=== PATIENT | female | born 1980 | race American Indian/Alaskan Native ===

== ENCOUNTER 2018-06-16 16:20 | Emergency (ER) | payer OTHER ==
[2018-06-16] MEDS ORDERED: NACL 0.9% 1000 ML 1,000 ML IV ONE ×2 (16:43→18:39)
[2018-06-16 17:31] LABS: Hematocrit 29.7 % (30.3-42.9); Hemoglobin 8.9 gm/dl (10.1-14.3); Mean Corpuscular HGB Conc 30 % (30-34); Mean Corpuscular Hemoglobin 20 pg (28-32); Mean Corpuscular Volume 66 fl (79-97); Platelet Count 362 K/mm3 (140-440); Red Blood Count 4.48 M/mm3 (3.65-5.03); Red Cell Distribution Width 18.7 % (13.2-15.2)
[2018-06-16 17:50] LABS: Alanine Aminotransferase 19 units/L (7-56); Albumin 4.4 g/dL (3.9-5); BUN/Creatinine Ratio 16; Blood Urea Nitrogen 11 mg/dL (7-17); Hemolysis Index 0; Lipase 40 units/L (13-60)
--- NOTE | 2018-06-16 18:20 | Emergency Department Report ---
ED Abdominal Pain HPI - General Chief Complaint: Abdominal Pain Stated Complaint: N/V/D Time Seen by Provider: 06/16/18 18:30 Source: patient, family Mode of arrival: Wheelchair Limitations: No Limitations - History of Present Illness Initial Comments: This is a 38-year-old female presented to the hospital with nausea vomiting diarrhea with dizziness that started at 3:00 this morning. She is complaining of some abdominal cramping. Pain is 4 out of 10 and constant. She said it started approximately 2 hours after she ate [employer]. Denies any fever or chills. Denies any vaginal bleeding or discharge. Denies any urinary burning, frequency or urgency. Patient says she was treated at [facility] for urinary tract infection a few weeks ago. Her primary care doctors at [facility]. Pain is worse of vomiting and no alleviating factor. Denies any chest pain or shortness of breath. No medication taken before coming to the hospital MD Complaint: abdominal pain, other (nausea, vomiting and diarrhea) -: This evening Location: diffuse Radiation: none Migration to: no migration Severity: mild Severity scale (0 -10): 4 Quality: cramping Consistency: constant Improves With: nothing Worsens With: vomiting Context: other (unknown) Associated Symptoms: nausea, vomiting, diarrhea, other (dizziness). denies: fever, chills, constipation, dysuria, hematemesis, hematochezia, melena, hematuria, syncope Treatments Prior to Arrival: other (none) - Related Data Previous Rx's Medication Instructions Recorded Last Taken Type Dicyclomine [Bentyl] 40 mg PO Q8H 3 Days #9 tablet 06/16/18 Unknown Rx Famotidine [Pepcid] 20 mg PO BID 6 Days #12 tablet 06/16/18 Unknown Rx Promethazine [Phenergan TAB] 25 mg PO Q6HR PRN #16 tab 06/16/18 Unknown Rx cephALEXin [Keflex] 500 mg PO Q8HR 7 Days #21 cap 06/16/18 Unknown Rx Allergies Allergy/AdvReac Type Severity Reaction Status Date / Time egg Allergy Hives Verified 06/16/18 16:40 latex Allergy Hives Verified 06/16/18 16:40 seafood Allergy Hives Uncoded 06/16/18 16:40 ED Review of Systems ROS: Stated complaint: N/V/D Other details as noted in HPI Constitutional: denies: chills, fever ENT: denies: throat pain, congestion Respiratory: denies: cough, shortness of breath, SOB with exertion, SOB at rest , wheezing Cardiovascular: denies: chest pain, palpitations, dyspnea on exertion, edema, syncope Gastrointestinal: abdominal pain, nausea, vomiting, diarrhea. denies: constipation, hematemesis, melena, hematochezia Genitourinary: denies: urgency, dysuria, frequency, hematuria, discharge Musculoskeletal: denies: back pain, joint swelling, arthralgia Skin: denies: rash, lesions Neurological: denies: headache, weakness, paresthesias, abnormal gait, vertigo ED Past Medical Hx - Past Medical History Previous Medical History?: Yes Additional medical history: low iron - Surgical History Past Surgical History?: Yes Hx Cholecystectomy: Yes Additional Surgical History: C/S - Family History Family history: hypertension - Social History Smoking Status: Never Smoker Substance Use Type: Alcohol - Medications Home Medications: Home Medications Medication Instructions Recorded Confirmed Last Taken Type Dicyclomine [Bentyl] 40 mg PO Q8H 3 Days #9 tablet 06/16/18 Unknown Rx Famotidine [Pepcid] 20 mg PO BID 6 Days #12 tablet 06/16/18 Unknown Rx Promethazine [Phenergan TAB] 25 mg PO Q6HR PRN #16 tab 06/16/18 Unknown Rx cephALEXin [Keflex] 500 mg PO Q8HR 7 Days #21 cap 06/16/18 Unknown Rx ED Physical Exam - General Limitations: No Limitations General appearance: alert, in no apparent distress - Head Head exam: Present: atraumatic, normocephalic, normal inspection - Eye Eye exam: Present: normal appearance, PERRL, EOMI Pupils: Present: normal accommodation - ENT ENT exam: Present: normal exam, normal orophraynx, mucous membranes moist, TM's normal bilaterally, normal external ear exam - Neck Neck exam: Present: normal inspection, full ROM. Absent: tenderness, lymphadenopathy - Respiratory Respiratory exam: Present: normal lung sounds bilaterally. Absent: respiratory distress, chest wall tenderness - Cardiovascular Cardiovascular Exam: Present: regular rate, normal rhythm, normal heart sounds. Absent: systolic murmur, diastolic murmur - GI/Abdominal GI/Abdominal exam: Present: soft, tenderness (patient reports tenderness with palpation, generalized), guarding, normal bowel sounds. Absent: distended, rebound, rigid, organomegaly, mass, bruit, pulsatile mass - Extremities Exam Extremities exam: Present: normal inspection, full ROM, normal capillary refill , other (No cce. + 2 pulses in all extremities, no neurovascular compromise). Absent: tenderness, pedal edema, joint swelling, calf tenderness - Back Exam Back exam: Present: normal inspection, full ROM, other (embolus without any difficulties). Absent: CVA tenderness (R), CVA tenderness (L), vertebral tenderness, rash noted - Neurological Exam Neurological exam: Present: alert, oriented X3, normal gait - Psychiatric Psychiatric exam: Present: normal affect, normal mood - Skin Skin exam: Present: warm, dry, intact, normal color. Absent: rash ED Course Vital Signs 06/16/18 06/16/18 16:40 20:56 Temperature 98.2 F 98.5 F Pulse Rate 95 H 77 Respiratory 18 16 Rate Blood Pressure 104/59 Blood Pressure 127/72 [Left] O2 Sat by Pulse 97 100 Oximetry - Reevaluation(s) Reevaluation #1: 06/16/18 19:10 Patient received Pepcid 20 mg IV, Toradol 30 mg IV, Zofran 8 mg IV for nausea and vomiting and abdominal pain and she voiced some relief of her pain. She states that she is feeling better. Abdominal exam with generalized minimal tenderness. IV fluid normal saline bolus. Patient with elevated white count. Reevaluation #2: 06/16/18 20:[address] scan. She says she is feeling better and that she will let me know if she needs anything. Awaiting CT scan results. Reevaluation #3: 06/16/18 21:43 Patient remained stable. No episode of nausea vomiting or diarrhea at this point. She is feeling better. Abdominal exam without any tenderness. Patient says she is ready to go and she is able to tolerate oral ED Medical Decision Making - Lab Data Result diagrams: 06/16/18 16:55 06/16/18 16:55 Lab Results 06/16/18 06/16/18 06/16/18 Range/Units 16:55 16:55 16:55 WBC 16.5 H (4.5-11.0) K/mm3 RBC 4.48 (3.65-5.03) M/mm3 Hgb 8.9 L (10.1-14.3) gm/dl Hct 29.7 L (30.3-42.9) % MCV 66 L (79-97) fl MCH 20 L (28-32) pg MCHC 30 (30-34) % RDW 18.7 H (13.2-15.2) % Plt Count 362 (140-440) K/mm3 Add Manual Diff Complete Total Counted 100 Seg Neuts % (Manual) 82.0 H (40.0-70.0) % Band Neutrophils % 0 % Lymphocytes % (Manual) 13.0 L (13.4-35.0) % Reactive Lymphs % (Man) 0 % Monocytes % (Manual) 5.0 (0.0-7.3) % Eosinophils % (Manual) 0 (0.0-4.3) % Basophils % (Manual) 0 (0.0-1.8) % Metamyelocytes % 0 % Myelocytes % 0 % Promyelocytes % 0 % Blast Cells % 0 % Nucleated RBC % Not Reportable Seg Neutrophils # Man 13.5 H (1.8-7.7) K/mm3 Band Neutrophils # 0.0 K/mm3 Lymphocytes # (Manual) 2.1 (1.2-5.4) K/mm3 Abs React Lymphs (Man) 0.0 K/mm3 Monocytes # (Manual) 0.8 (0.0-0.8) K/mm3 Eosinophils # (Manual) 0.0 (0.0-0.4) K/mm3 Basophils # (Manual) 0.0 (0.0-0.1) K/mm3 Metamyelocytes # 0.0 K/mm3 Myelocytes # 0.0 K/mm3 Promyelocytes # 0.0 K/mm3 Blast Cells # 0.0 K/mm3 WBC Morphology Not Reportable Hypersegmented Neuts Not Reportable Hyposegmented Neuts Not Reportable Hypogranular Neuts Not Reportable Smudge Cells Not Reportable Toxic Granulation Not Reportable Toxic Vacuolation Not Reportable Dohle Bodies Not Reportable Pelger-Huet Anomaly Not Reportable Maryjane Rods Not Reportable Platelet Estimate Consistent w auto Clumped Platelets Not Reportable Plt Clumps, EDTA Not Reportable Large Platelets Not Reportable Giant Platelets Not Reportable Platelet Satelliting Not Reportable Plt Morphology Comment Not Reportable RBC Morphology Not Reportable Dimorphic RBCs Not Reportable Polychromasia Not Reportable Hypochromasia 2+ Poikilocytosis Not Reportable Anisocytosis 1+ Microcytosis Not Reportable Macrocytosis Not Reportable Spherocytes Not Reportable Pappenheimer Bodies Not Reportable Sickle Cells Not Reportable Target Cells Few Tear Drop Cells Not Reportable Ovalocytes 1+ Helmet Cells Not Reportable Patel-Gardners Bodies Not Reportable Rolla Rings Not Reportable Speculator Cells Not Reportable Bite Cells Not Reportable Crenated Cell Not Reportable Elliptocytes Not Reportable Acanthocytes (Spur) Not Reportable Rouleaux Not Reportable Hemoglobin C Crystals Not Reportable Schistocytes Not Reportable Malaria parasites Not Reportable Gavino Bodies Not Reportable Hem Pathologist Commnt No Sodium 137 (137-145) mmol/L Potassium 3.6 (3.6-5.0) mmol/L Chloride 100.9 (98-107) mmol/L Carbon Dioxide 23 (22-30) mmol/L Anion Gap 17 mmol/L BUN 11 (7-17) mg/dL Creatinine 0.7 (0.7-1.2) mg/dL Estimated GFR > 60 ml/min BUN/Creatinine Ratio 16 % Glucose 143 H (65-100) mg/dL Calcium 9.0 (8.4-10.2) mg/dL Total Bilirubin 0.30 (0.1-1.2) mg/dL AST 18 (5-40) units/L ALT 19 (7-56) units/L Alkaline Phosphatase 75 (35-129) units/L Total Protein 8.9 H (6.3-8.2) g/dL Albumin 4.4 (3.9-5) g/dL Albumin/Globulin Ratio 1.0 % Lipase 40 (13-60) units/L HCG, Qual Negative (Negative) Urine Color (Yellow) Urine Turbidity (Clear) Urine pH (5.0-7.0) Ur Specific Lynn (1.003-1.030) Urine Protein (Negative) mg/dL Urine Glucose (UA) (Negative) mg/dL Urine Ketones (Negative) mg/dL Urine Blood (Negative) Urine Nitrite (Negative) Urine Bilirubin (Negative) Urine Urobilinogen (<2.0) mg/dL Ur Leukocyte Esterase (Negative) Urine WBC (Auto) (0.0-6.0) /HPF Urine RBC (Auto) (0.0-6.0) /HPF U Epithel Cells (Auto) (0-13.0) /HPF Hyaline Casts /LPF Urine Mucus /HPF 06/16/18 Range/Units 19:18 WBC (4.5-11.0) K/mm3 RBC (3.65-5.03) M/mm3 Hgb (10.1-14.3) gm/dl Hct (30.3-42.9) % MCV (79-97) fl MCH (28-32) pg MCHC (30-34) % RDW (13.2-15.2) % Plt Count (140-440) K/mm3 Add Manual Diff Total Counted Seg Neuts % (Manual) (40.0-70.0) % Band Neutrophils % % Lymphocytes % (Manual) (13.4-35.0) % Reactive Lymphs % (Man) % Monocytes % (Manual) (0.0-7.3) % Eosinophils % (Manual) (0.0-4.3) % Basophils % (Manual) (0.0-1.8) % Metamyelocytes % % Myelocytes % % Promyelocytes % % Blast Cells % % Nucleated RBC % Seg Neutrophils # Man (1.8-7.7) K/mm3 Band Neutrophils # K/mm3 Lymphocytes # (Manual) (1.2-5.4) K/mm3 Abs React Lymphs (Man) K/mm3 Monocytes # (Manual) (0.0-0.8) K/mm3 Eosinophils # (Manual) (0.0-0.4) K/mm3 Basophils # (Manual) (0.0-0.1) K/mm3 Metamyelocytes # K/mm3 Myelocytes # K/mm3 Promyelocytes # K/mm3 Blast Cells # K/mm3 WBC Morphology Hypersegmented Neuts Hyposegmented Neuts Hypogranular Neuts Smudge Cells Toxic Granulation Toxic Vacuolation Dohle Bodies Pelger-Huet Anomaly Maryjane Rods Platelet Estimate Clumped Platelets Plt Clumps, EDTA Large Platelets Giant Platelets Platelet Satelliting Plt Morphology Comment RBC Morphology Dimorphic RBCs Polychromasia Hypochromasia Poikilocytosis Anisocytosis Microcytosis Macrocytosis Spherocytes Pappenheimer Bodies Sickle Cells Target Cells Tear Drop Cells Ovalocytes Helmet Cells Patel-Gardners Bodies Rolla Rings Soraya Cells Bite Cells Crenated Cell Elliptocytes Acanthocytes (Spur) Rouleaux Hemoglobin C Crystals Schistocytes Malaria parasites Gavino Bodies Hem Pathologist Commnt Sodium (137-145) mmol/L Potassium (3.6-5.0) mmol/L Chloride (98-107) mmol/L Carbon Dioxide (22-30) mmol/L Anion Gap mmol/L BUN (7-17) mg/dL Creatinine (0.7-1.2) mg/dL Estimated GFR ml/min BUN/Creatinine Ratio % Glucose (65-100) mg/dL Calcium (8.4-10.2) mg/dL Total Bilirubin (0.1-1.2) mg/dL AST (5-40) units/L ALT (7-56) units/L Alkaline Phosphatase (35-129) units/L Total Protein (6.3-8.2) g/dL Albumin (3.9-5) g/dL Albumin/Globulin Ratio % Lipase (13-60) units/L HCG, Qual (Negative) Urine Color Shahana (Yellow) Urine Turbidity Hazy (Clear) Urine pH 5.0 (5.0-7.0) Ur Specific Lynn 1.030 (1.003-1.030) Urine Protein >500 (Negative) mg/dL Urine Glucose (UA) Neg (Negative) mg/dL Urine Ketones Tr (Negative) mg/dL Urine Blood Mod (Negative) Urine Nitrite Neg (Negative) Urine Bilirubin Neg (Negative) Urine Urobilinogen < 2.0 (<2.0) mg/dL Ur Leukocyte Esterase Neg (Negative) Urine WBC (Auto) 27.0 H (0.0-6.0) /HPF Urine RBC (Auto) 11.0 (0.0-6.0) /HPF U Epithel Cells (Auto) 11.0 (0-13.0) /HPF Hyaline Casts 40 /LPF Urine Mucus 3+ /HPF Urine culture sent - Radiology Data Radiology results: report reviewed Patient had CT scan of the abdomen and pelvis IV contrast which is dictated by radiologist and report reviewed by myself. See details below. Patient: TERRELL ARAIZA MR#: [id number] : 1980 Acct:[id number] Age/Sex: 38 / F ADM Date: 06/16/18 Loc: ED Attending Dr: Ordering Physician: JACEY MATHEW Date of Service: 06/16/18 Procedure(s): CT abdomen pelvis w con Accession Number(s): [id number] cc: JACEY MATHEW FINAL REPORT EXAM: CT ABDOMEN PELVIS W CON HISTORY: abdominal pain, NVD TECHNIQUE: Following IV administration of 100 cc of Omnipaque 300 axial helical imaging was performed through the abdomen and pelvis with sagittal and coronal reformatted images obtained. Delayed axial helical imaging was also performed through the abdomen and pelvis. Comparison: None FINDINGS: The lung bases are without infiltrate, pneumothorax or pleural fluid collection. Heart appears to be enlarged. The liver, spleen, pancreas, kidneys and adrenal glands are normal in appearance. The gallbladder is absent with surgical clips in the gallbladder fossa. The bowel is normal caliber. The colon is largely air and fluid-filled with air-fluid levels. This is suggestive of enteritis. There is no bowel wall thickening or pericolic inflammatory change to suggest the presence colitis. The appendix is normal caliber and contains air. There is no periappendiceal inflammatory change. There is no evidence of pneumoperitoneum or free fluid. The abdominal aorta is normal caliber. There is no evidence of pathologic intra-abdominal adenopathy by CT size criteria. The urinary bladder is mildly distended and unremarkable in appearance. The uterus and adnexa is the are notable for evidence of previous tubal ligation. There is an area of decreased density in the anterior aspect of the lower uterine segment that measures approximately 2 centimeters in size. The appearance is suggestive of a cyst. This is of unclear etiology. The bony structures are unremarkable in appearance. IMPRESSION: 1. Findings most suggestive of enteritis. 2. Status post cholecystectomy. 3. Appearance of an approximately 2 centimeter cystic appearing structure in the lower uterine segment. Comparison with previous imaging studies would be helpful. If no prior studies are available for comparison, ultrasound imaging may be helpful for further evaluation. 4. The heart appears to be enlarged. Transcribed By: ED Dictated By: ALFONZO OLEARY MD Electronically Authenticated By: ALFONZO OLEARY MD Signed Date/Time: 06/16/182017 DD/ 17 TD/TT: 06/16/182017 - Medical Decision Making This is 38-year-old female who presents to the emergency room report that she is having nausea vomiting and diarrhea with generalized abdominal cramping. She said she ate [employer] before this happen but she had eaten [employer] in the past and this did not happen to her so she is not sure what is going on. Diagnostics: The skin of the abdomen and pelvis with IV contrast shows1. Findings most suggestive of enteritis. Status post cholecystectomy. Appearance of an approximately 2 centimeter cystic appearing structure in the lower uterine segment. Sensation says she has uterine fibroid and she has an appointment to get an MRI at [facility] at 9:30 AM in the morning. Labs: CBC with white count of 16.5, H&H is 8.9 and 29.7. Patient says she has chronic anemia and she is on iron pill twice a day. All other values are stable and CBC. CMP stable minor abnormality, lipase normal, test negative. Urinalysis positive for protein and also reports hazy color and increase in white blood cells. Urine culture sent. Assessment/plan 1: Generalized abdominal pain-ED scan shows enteritis. Patient was given. Toradol 30 mg IV which resolved her pain and also send her home and Bentyl. 2: Nausea vomiting and diarrhea-Pt given Pepcid 20 mg IV and 1 L of normal saline and symptoms are better. Patient able to tolerate by mouth liquid in the emergency room without any nausea vomiting or diarrhea. Patient will be sent home on Pepcid and Phenergan. 3: Enteritis-better with medication. [place] diet for 72 hours. 4:Pyuria/proteinuria-sheet with elevation and urine white blood cell and she was recently treated couple weeks ago for urinary tract infection. I will put her on Keflex. Patient with leukocytosis at 16.5. 5: Uterine cyst-per CT scan and unlikely fibroid and patient scheduled for MRI at [facility] tomorrow 6: Anemia-this is chronic patient with dysfunctional uterine bleeding from fibroids and she is on first sulfates. I discussed with her to increase her iron pills 3 times a day and she says she has follow-up visit with her [facility]ER at [facility]. I discussed with patient her diagnosis, CT scan results and also lab reports. She voiced understanding. Patient is stable. Her symptoms has resolved, vital signs are stable she is afebrile and she said she is feeling better and ready to go home. Patient discharged home in stable condition to follow up with [facility] primary care physician and chief nurse anesthetist. She is going to [facility] tomorrow for MRI due to uterine fibroids. She agrees to follow-up. Discharged home in stable condition with prescription for Bentyl, Keflex and Phenergan and encouraged to do been diet to include Benicar sauce and toast, drink water and Gatorade over the next 72 hours. - Differential Diagnosis Colitis, liver dz,Pancreatitis, gastroenteritis, ,uti Critical care attestation.: If time is entered above; I have spent that time in minutes in the direct care of this critically ill patient, excluding procedure time. ED Disposition Clinical Impression: Nausea vomiting and diarrhea, Pyuria, Enteritis Abdominal pain Qualifiers: Abdominal location: generalized Qualified Code(s): R10.84 - Generalized abdominal pain Leukocytosis Qualifiers: Leukocytosis type: unspecified Qualified Code(s): D72.829 - Elevated white blood cell count, unspecified Anemia Qualifiers: Anemia type: unspecified type Qualified Code(s): D64.9 - Anemia, unspecified Disposition: DC- TO HOME OR SELFCARE Is pt being admited?: No Does the pt Need Aspirin: No Condition: Stable Instructions: Abdominal Pain (ED), Acute Nausea and Vomiting (ED), Gastroenteritis (ED), Acute Diarrhea (ED), Nutrition Tips for Relief of Diarrhea (ED), Anemia (ED) Additional Instructions: Eat foods that are planned such as bananas, rice and applesauce and toast over the next 72 hours. Increased fluid intake and drink Gatorade to preserve electrolytes Take Keflex for UTI Take Phenergan for nausea and vomiting and please do not drive or operate heavy machinery as this medication can cause drowsiness take iron pill but increase to 3 times a day from 2 times a day to your primary care [facility] at [facility] now about your visit to the hospital. If your symptoms recur, return to hospital. Referrals: DEREK MALAGON MD [Primary Care Provider] - 06/17/18 [facility] [Provider Group] - 06/17/18 Forms: Work/School Release Form(ED)
[2018-06-16] MEDS ORDERED: TORADOL IV ONE (18:39)
[2018-06-16] MEDS ORDERED: PEPCID IV ONE (18:39)
[2018-06-16] MEDS ORDERED: ZOFRAN IV NR (19:00)
[2018-06-16 19:54] LABS: Bilirubin,Urine NEG (Negative); Blood,Urine MOD (Negative); Color,Urine Amber (Yellow); Hyaline Casts,Urine 40 /LPF; Mucus,Urine 3+ /HPF; Protein,Urine >500 mg/dL (Negative); Urobilinogen,Urine < 2.0 mg/dL (<2.0)
[2018-06-16 19:58] LABS: Anisocytosis 1+; Basophils % (Manual) 0 % (0.0-1.8); Eosinophils % (Manual) 0 % (0.0-4.3); Total Cells Counted 100
[2018-06-16 19:59] LABS: Hypochromasia 2+; Ovalocytes 1+; Platelet Estimate Consistent w Auto; Target Cells Few
--- NOTE | 2018-06-16 20:20 | Cat Scan Report ---
FINAL REPORT EXAM: CT ABDOMEN PELVIS W CON HISTORY: abdominal pain, NVD TECHNIQUE: Following IV administration of 100 cc of Omnipaque 300 axial helical imaging was performed through the abdomen and pelvis with sagittal and coronal reformatted images obtained. Delayed axial helical imaging was also performed through the abdomen and pelvis. Comparison: None FINDINGS: The lung bases are without infiltrate, pneumothorax or pleural fluid collection. Heart appears to be enlarged. The liver, spleen, pancreas, kidneys and adrenal glands are normal in appearance. The gallbladder is absent with surgical clips in the gallbladder fossa. The bowel is normal caliber. The colon is largely air and fluid-filled with air-fluid levels. This is suggestive of enteritis. There is no bowel wall thickening or pericolic inflammatory change to suggest the presence colitis. The appendix is normal caliber and contains air. There is no periappendiceal inflammatory change. There is no evidence of pneumoperitoneum or free fluid. The abdominal aorta is normal caliber. There is no evidence of pathologic intra-abdominal adenopathy by CT size criteria. The urinary bladder is mildly distended and unremarkable in appearance. The uterus and adnexa is the are notable for evidence of previous tubal ligation. There is an area of decreased density in the anterior aspect of the lower uterine segment that measures approximately 2 centimeters in size. The appearance is suggestive of a cyst. This is of unclear etiology. The bony structures are unremarkable in appearance. IMPRESSION: 1. Findings most suggestive of enteritis. 2. Status post cholecystectomy. 3. Appearance of an approximately 2 centimeter cystic appearing structure in the lower uterine segment. Comparison with previous imaging studies would be helpful. If no prior studies are available for comparison, ultrasound imaging may be helpful for further evaluation. 4. The heart appears to be enlarged.
[2018-06-16 20:56] VITALS: BP 127/72
== END 2018-06-16 22:22 | disposition home or self-care (01) ==
LOC: ED 16:20
DX: K52.9 Noninfective gastroenteritis and colitis, unspecified (principal); D72.829 Elevated white blood cell count, unspecified; D64.9 Anemia, unspecified; N39.0 Urinary tract infection, site not specified; Z90.89 Acquired absence of other organs; Z91.012 Allergy to eggs; Z91.040 Latex allergy status; Z91.013 Allergy to seafood
CPT/HCPCS: 36415; 74177; 80053; 81001; 83690; 84703; 85007; 85025; 87086; 96361; 96374; 96375; 99284; J1885; J2405; J7030; Q9967